=== PATIENT | male | born 1940 | race Caucasian/White ===

== ENCOUNTER 2017-04-16 10:31 | Inpatient (IN) | payer OTHER, BC ==
[~2017-04-16] VITALS: Ht 182.9 cm; Wt 119.3 kg
[2017-04-16 11:08] LABS: BASOPHIL % 0.3 % (0-2); PLATELET COUNT 166 x10^3mcL (130-400)
[2017-04-16 11:09] LABS: RED CELL DISTRIBUTION WIDTH 15.3 % (11.5-14.5)
[2017-04-16 11:23] LABS: ALKALINE PHOSPHATASE 43 U/L (46-116); ALT/SGPT 27 U/L (16-63); AST/SGOT 19 U/L (15-37); BILIRUBIN TOTAL 0.47 mg/dL (0.20-1.00); CALCIUM 8.6 mg/dL (8.5-10.1); CARBON DIOXIDE 28.5 mmol/L (21-32); CHLORIDE SERUM 107 mmol/L (98-107); CREATININE SERUM 2.4 mg/dL (0.7-1.3); GLUCOSE SERUM 424 mg/dL (74-106); SODIUM SERUM 141 mmol/L (136-145); TOTAL PROTEIN, SERUM 6.4 g/dL (6.4-8.2)
[2017-04-16 11:25] LABS: ALBUMIN 2.6 g/dL (3.4-5.0); POTASSIUM SERUM 6.3 mmol/L (3.5-5.1)
[2017-04-16 13:00] LABS: MAGNESIUM 2.1 mg/dL (1.8-2.4); PHOSPHOROUS 1.6 mg/dL (2.5-4.9)
[2017-04-16 13:01] LABS: CHOLESTEROL/HDL RATIO 7.6
[2017-04-16 13:07] LABS: FREE T4 0.9 ng/dL (0.76-1.46); FREE THYROXINE INDEX 2.1 ug/dL (1.4-4.5)
[2017-04-16] MEDS ORDERED: LYRICA150 M1 PO (13:12)
[2017-04-16] MEDS ORDERED: FUROSEMIDE20 MG PO (13:13)
[2017-04-16] MEDS ORDERED: CLOPIDOGREL75 M1 PO (13:13)
[2017-04-16] MEDS ORDERED: JANUVIA100 M1 PO (13:13)
[2017-04-16] MEDS ORDERED: FENOFIBRATE160 M1 PO (13:13)
[2017-04-16] MEDS ORDERED: MASON NATURAL1000 IU PO (13:14)
[2017-04-16] MEDS ORDERED: KLOR-CON M2020 MEQ PO (13:14)
[2017-04-16] MEDS ORDERED: ALLOPURINOL100 MG PO (13:15)
[2017-04-16] MEDS ORDERED: GLYBURIDE5 MG PO (13:15)
[2017-04-16] MEDS ORDERED: NATEGLINIDE120 M1 PO (13:15)
[2017-04-16] MEDS ORDERED: DIOVAN160 MG PO (13:16)
[2017-04-16] MEDS ORDERED: PRA40 PO (13:16)
[2017-04-16 13:21] LABS: T3 TOTAL 0.88 ng/mL
[2017-04-16 14:14] VITALS: BP 129/59
[2017-04-16 16:13] LABS: CALCIUM 9.2 mg/dL (8.5-10.1); CARBON DIOXIDE 27.4 mmol/L (21-32); CHLORIDE SERUM 109 mmol/L (98-107); CREATININE SERUM 2.5 mg/dL (0.7-1.3); SODIUM SERUM 145 mmol/L (136-145)
[2017-04-16 16:15] LABS: GLUCOSE SERUM 476 mg/dL (74-106); POTASSIUM SERUM 5.8 mmol/L (3.5-5.1)
[2017-04-16 18:06] VITALS: BP 127/70
[2017-04-16 21:40] VITALS: BP 117/54
[2017-04-17 02:11] LABS: CALCIUM 8.5 mg/dL (8.5-10.1); CARBON DIOXIDE 25.1 mmol/L (21-32); CHLORIDE SERUM 112 mmol/L (98-107); CREATININE SERUM 2.4 mg/dL (0.7-1.3); GLUCOSE SERUM 285 mg/dL (74-106); POTASSIUM SERUM 4.1 mmol/L (3.5-5.1); SODIUM SERUM 145 mmol/L (136-145)
[2017-04-17 04:01] LABS: TOTAL IRON BINDING CAPACITY 341 ug/dL (250-450)
[2017-04-17 04:07] LABS: IRON 278 ug/dL (65-170)
[2017-04-17 05:51] LABS: BASOPHIL % 0.2 % (0-2); PLATELET COUNT 132 x10^3mcL (130-400)
[2017-04-17 06:27] LABS: CALCIUM 8.8 mg/dL (8.5-10.1); CARBON DIOXIDE 25.7 mmol/L (21-32); CHLORIDE SERUM 113 mmol/L (98-107); CREATININE SERUM 2.3 mg/dL (0.7-1.3); GLUCOSE SERUM 245 mg/dL (74-106); MAGNESIUM 2.1 mg/dL (1.8-2.4); PHOSPHOROUS 2.4 mg/dL (2.5-4.9); SODIUM SERUM 147 mmol/L (136-145)
[2017-04-17 06:29] LABS: RED CELL DISTRIBUTION WIDTH 15.1 % (11.5-14.5)
[2017-04-17 06:52] VITALS: BP 115/61
[2017-04-17 08:21] LABS: RED BLOOD CELLS 2.79 M/mm3 (4.52-5.90)
[2017-04-17 10:31] VITALS: BP 126/54
[2017-04-17 13:44] VITALS: BP 116/54
[2017-04-17 21:47] VITALS: BP 128/62
[2017-04-18 06:30] LABS: BASOPHIL % 0.6 % (0-2); PLATELET COUNT 134 x10^3mcL (130-400)
[2017-04-18 06:40] VITALS: BP 118/56
[2017-04-18 06:43] LABS: RED CELL DISTRIBUTION WIDTH 15.5 % (11.5-14.5)
[2017-04-18 07:02] LABS: CALCIUM 8.5 mg/dL (8.5-10.1); CARBON DIOXIDE 26.2 mmol/L (21-32); CHLORIDE SERUM 117 mmol/L (98-107); CREATININE SERUM 2.1 mg/dL (0.7-1.3); GLUCOSE SERUM 72 mg/dL (74-106); POTASSIUM SERUM 3.7 mmol/L (3.5-5.1); SODIUM SERUM 150 mmol/L (136-145)
[2017-04-18 10:20] VITALS: BP 130/62
[2017-04-18 14:18] VITALS: BP 136/59
[2017-04-18 17:47] VITALS: BP 136/62
[2017-04-18 21:18] VITALS: BP 134/54
[2017-04-19 06:15] VITALS: BP 122/45
[2017-04-19 06:55] LABS: BASOPHIL % 0.4 % (0-2); CALCIUM 8.5 mg/dL (8.5-10.1); CARBON DIOXIDE 26.4 mmol/L (21-32); CHLORIDE SERUM 116 mmol/L (98-107); CREATININE SERUM 1.9 mg/dL (0.7-1.3); GLUCOSE SERUM 150 mg/dL (74-106); POTASSIUM SERUM 3.8 mmol/L (3.5-5.1); SODIUM SERUM 150 mmol/L (136-145)
[2017-04-19 07:07] LABS: PLATELET COUNT 128 x10^3mcL (130-400); RED CELL DISTRIBUTION WIDTH 15.4 % (11.5-14.5)
[2017-04-19 11:22] VITALS: Ht 182.9 cm; Wt 119.3 kg
[2017-04-19] MEDS ORDERED: NITROGLYCERIN0.4 MG SL (13:11)
[2017-04-19] MEDS ORDERED: COR3 PO (13:11)
[2017-04-19 13:49] VITALS: BP 122/45
[2017-04-19 14:26] VITALS: BP 112/43
== END 2017-04-19 16:31 | disposition home or self-care (01) | DRG 377 ==
LOC: ED 10:31 → DU 12:45
PROVIDERS: Emergency Medicine; Internal Medicine Cardiovascular Disease; Internal Medicine Gastroenterology; ADMIT Family Medicine
PROC: 0W3P8ZZ Control Bleeding in Gastrointestinal Tract, Via Natural or Artificial Opening Endoscopic (ICD-10-PCS; principal; 2017-04-18 08:00)
PROC: 0W3P8ZZ Control Bleeding in Gastrointestinal Tract, Via Natural or Artificial Opening Endoscopic (ICD-10-PCS; 2017-04-19)
PROC: 0DBF8ZZ Excision of Right Large Intestine, Via Natural or Artificial Opening Endoscopic (ICD-10-PCS; 2017-04-19 08:00)
PROC: 0DBN8ZZ Excision of Sigmoid Colon, Via Natural or Artificial Opening Endoscopic (ICD-10-PCS; 2017-04-19 08:00)
DX: K31.811 Angiodysplasia of stomach and duodenum with bleeding (principal); E43 Unspecified severe protein-calorie malnutrition; N17.0 Acute kidney failure with tubular necrosis; I42.9 Cardiomyopathy, unspecified; E11.65 Type 2 diabetes mellitus with hyperglycemia; K55.21 Angiodysplasia of colon with hemorrhage; K63.5 Polyp of colon; E87.5 Hyperkalemia; I12.9 Hypertensive chronic kidney disease with stage 1 through stage 4 chronic kidney disease, or unspecified chronic kidney disease; M10.9 Gout, unspecified; E83.39 Other disorders of phosphorus metabolism; J32.0 Chronic maxillary sinusitis; D50.9 Iron deficiency anemia, unspecified; N18.3 Chronic kidney disease, stage 3 (moderate); I25.2 Old myocardial infarction; Z87.891 Personal history of nicotine dependence; Z79.84 Long term (current) use of oral hypoglycemic drugs; Z95.5 Presence of coronary angioplasty implant and graft; I25.10 Atherosclerotic heart disease of native coronary artery without angina pectoris; M48.061 Spinal stenosis, lumbar region without neurogenic claudication
CPT/HCPCS: 43235; 45378; 82962; 83880; 84439; C9113; J0696; J1200; J1610; J1644; J1815; J1940; J2250; J2310; J2405; J2765; J3010; J3490; J7030; J7042; J7613; J7644; J8597; Q0092

== ENCOUNTER 2017-04-26 04:41 | Inpatient (IN) | payer OTHER, BC ==
[~2017-04-26] VITALS: Ht 182.9 cm; Wt 114.9 kg
[~2017-04-26 04:41] MED LIST: ALLOPURINOL100 MG PO; CLOPIDOGREL75 M1 PO; COR3 PO; DIOVAN160 MG PO; FENOFIBRATE160 M1 PO; FUROSEMIDE20 MG PO; GLYBURIDE5 MG PO; JANUVIA100 M1 PO; KLOR-CON M2020 MEQ PO; LYRICA150 M1 PO; MASON NATURAL1000 IU PO; NITROGLYCERIN0.4 MG SL; PRA40 PO
--- NOTE | 2017-04-26 05:00 | NUR ---
PATIENT WAS BROUGHT IN BY EMS WITH COMPLAINT OF SOB AND LOW BLOOD SUGAR. PATIENT IS ALERT AND ORIENTED.02 SAT 96% ON ROOM AIR AND 100% WITH 2L LITERS OXYGEN VIA N/C. PATIENT REPORTS H/O CHF BUT STOP TAKING WATER PILL FOR A FEW DAYS AGO FOR UPCOMIMG PROCEDURE. PATIENT IS TALKING FULL SENTENCE. NO SOB NOTED. BLOOD SUGAR WAS LOW IN THE FIELD, PATIENT WAS GIVEN ORAL GLUCOSE. FINGERSTICK BLOOD SUGAR IS 48 MG/DL. REPEAT WAS 53 MG/DL. MD AWARE AND THE PATIENT WAS GIVEN IV DEXTROSE.
[2017-04-26 05:04] LABS: BASOPHIL % 0.6 % (0-2); PLATELET COUNT 167 x10^3mcL (130-400)
[2017-04-26 05:13] LABS: RED CELL DISTRIBUTION WIDTH 16.4 % (11.5-14.5)
[2017-04-26 05:34] LABS: ALBUMIN 2.8 g/dL (3.4-5.0); ALKALINE PHOSPHATASE 55 U/L (46-116); ALT/SGPT 35 U/L (16-63); AST/SGOT 27 U/L (15-37); BILIRUBIN TOTAL 0.4 mg/dL (0.20-1.00); CARBON DIOXIDE 24.4 mmol/L (21-32); CHLORIDE SERUM 108 mmol/L (98-107); SODIUM SERUM 140 mmol/L (136-145); TOTAL PROTEIN, SERUM 6.6 g/dL (6.4-8.2)
[2017-04-26 05:36] LABS: GLUCOSE SERUM 51 mg/dL (74-106)
--- NOTE | 2017-04-26 06:06 | NUR ---
PATIENT AMBULATED TO THE BATHROOM AND BACK, COMPLAINT HE GOT A LITTLE SHORT OF BREATH WITH WALKING. pATIENT REFUSED TO USE THE COMMODE. BLOOD SUGAR IS 137 MG/DL AT THIS TIME. PATIENT IS SOCIALIZING WITH FAMILY, NO DISTRESS.
--- NOTE | 2017-04-26 06:36 | NUR ---
REPORT WAS GIVEN TO [facility]. MRSA SWAB WAS DONE, MED REC WAS DONE.PATIENT TRANSPORTED TO ROOM 207B.
--- NOTE | 2017-04-26 06:57 | NUR ---
PATIENT TRANSPORTED TO ROOM 207B.
--- NOTE | 2017-04-26 07:00 | NUR ---
RECEIVED PT FOR ADMISSION. PT ACCOMPANIED BY ER NURSE AND SPOUSE VIA GUERNEY FROM ED. ORIENTED PT TO ROOM AND CALL LIGHT. NO SIGNS OF RESP DISTRESS OBSERVED, PT DENIES ANY PAIN. BED IN LOWEST SETTING, SIDE RAILS UP X2, CALL LIGHT WITHIN REACH. WILL ENDORSE CARE TO AM NURSE.
--- NOTE | 2017-04-26 07:30 | NUR ---
RECD REPORT FROM OUTGOING NURSE. PT ARRIVED TO THE UNIT AROUND 0700. OX4. C/C SOB. O2 2L /NC IN USE; DENIES SOB OR COUGH BUT WHEEZES NOTED ON AUSCULTATION PRASHANTH. DENIES CP OR OTHER DISCOMFORT; ON TELE 26. PT STATES HE WAS HOSPITALIZED 2 WKS AGO FOR BLEEDING ULCER AND STOOLS WERE BLACK; HIS STOOLS HAS BEEN YELLOW SINCE DISCHARGE; PT ORIENTED TO UNIT SAFETY AND FALL PRECAUTION REINFORCED; NEEDS ATTENDED; NSG ASSESSMENT DONE AND DOCUMENTED; WILL CONTINUE TO MONITOR STATUS.
[2017-04-26 07:46] LABS: T3 TOTAL 0.72 ng/mL
[2017-04-26 07:50] VITALS: BP 131/58
[2017-04-26 09:16] LABS: MAGNESIUM 2.5 mg/dL (1.8-2.4); PHOSPHOROUS 3.6 mg/dL (2.5-4.9)
[2017-04-26 09:17] LABS: CHOLESTEROL/HDL RATIO 4.2
[2017-04-26 09:19] LABS: FREE THYROXINE INDEX 2.3 ug/dL (1.4-4.5); T4(THYROXINE) 6.3 ug/dL (4.7-13.3)
--- NOTE | 2017-04-26 09:30 | NUR ---
DR. MAGDALENO CALLED FOR DIET ORDER
[2017-04-26 09:52] VITALS: BP 127/54
--- NOTE | 2017-04-26 10:03 | NUR ---
PT REFUSED FLU VACCINE THIS TIME AND STATES WILL CHECK WITH HIS DOCTOR FIRST. PT ASSISTED TO GET OUT OF BED TO CHAIR. URINE HAS BEEN COLLECTED AND SENT TO LAB FOR UA AND UDS.
--- NOTE | 2017-04-26 11:00 | NUR ---
PT AND INSTRUCTED STRICT I&O, AND FREE WATER OF 500 ML. VERBALIZED UNDERSTANDING.FEATHER RENOVATOR MADE AWARE TOO.
--- NOTE | 2017-04-26 11:45 | NUR ---
1122- PT REPORTS FEELING DIZZY AND WITH HAZY VISION; ACCUCHECK DONE AND SHOWS 44 ON THE RH FINGER; RECHECKED ON THE LH FINGER IS 58. DR. MAGDALENO AND [place] AWARE; 1125-D5O 1 AMP IVP ADMINISTERED BY ELASTIC TAPE INSERTER. WITHIN 5 MIN PT REPORTS FEELING RELIEF, VISION IS CLEAR. GIVEN ORANGE JUICE ORDERED BY DR. MAGDALENO. WILL RECHECK ACCUCHECK AND MONITOR STATUS.
[2017-04-26 13:32] LABS: microscopic required? YES; urine erythrocyte TRACE (NEGATIVE)
--- NOTE | 2017-04-26 13:47 | NUR ---
LASIX GIVEN AT 1144; BP 125/61 HR 65.
[2017-04-26 13:49] LABS: AMPHETAMINE QUAL UR NONE DETECTED (NEG <=1000)
[2017-04-26 14:00] VITALS: BP 137/53
[2017-04-26 14:45] VITALS: BP 127/54
--- NOTE | 2017-04-26 17:21 | NUR ---
NO NEW ACUTE CHANGES. PT HAS BEEN SITTING IN THE CHAIR MOST OF THE TIME. NO SOB. O2 2L/NC REMAIN IN USE. KPAD IN PLACE, SCD TO BLE IN USE. WILL CONTINUE TO MONITOR STATUS.
[2017-04-26 17:41] VITALS: BP 119/72
--- NOTE | 2017-04-26 19:30 | NUR ---
PT IS SITTING UP IN CHAIR WITH FAMILY IN THE ROOM. ALERT AND ORIENTED X4. TELE #26 SHOWING SINUS RHYTHM WITH 1ST DEGREE PVC. DENIES CHEST PAIN AT THIS TIME. DENIES PAIN AT THIS TIME. PULSES PALPABLE IN BUE, PULSES DIMINISHED IN BLE DUE TO EDEMA. PT'S STATES "FOOT LOOKS BIGGER THAN YESTERDAY" R/T SWELLING. LUNG SOUNDS CTA. NO SOB OBSERVED. BOWEL SOUNDS ACTIVE X4 QUADRANTS. AMBULATORY. IV IS PATENT AND INTACT. PT IS ON STRICT I&OS. BED IS IN LOWEST POSITION, SIDE RAILS ARE UP X2, CALL LIGHT IS WITHIN REACH. WILL CONTINUE TO MONITOR.
[2017-04-26 20:34] VITALS: BP 123/52
--- NOTE | 2017-04-26 23:50 | NUR ---
PT C/O NEUROPATHY FOOT PAIN. STATED THAT HE USES LYRICA AT HOME TO HELP CONTROL PAIN. SPOKE TO DR. STERN REGARDING A NEW ORDER FOR LYRICA TO ADMINISTER TONIGHT TO HELP WITH PT PAIN. AWAITING NEW ORDER.
--- NOTE | 2017-04-27 02:03 | NUR ---
PT AWAKE IN BED STATES HE HAS TROUBLE SLEEPING AWAY FROM HOME. APPLIED PT'S HOME NEUROPATHY BOOTS ONTO PT HE REQUESTED. STATES HE WANTS HIS BLOOD SUGAR TAKEN SINCE HE EXPERIENCES VISUAL CHANGES WHEN HIS SUGAR IS LOW AND REPORTS SEEING DOTS. WILL TAKE BLOOD SUGAR REQUESTED.
--- NOTE | 2017-04-27 02:04 | NUR ---
PT BLOOD GLUCOSE IS 72. GAVE PT APPLE JUICE.
--- NOTE | 2017-04-27 03:11 | NUR ---
PT SITTING AT SIDE OF BED. STATES HE HAS DIFFICULTY SLEEPING DUE TO NEUROPATHY PAIN AND KEEPS HAVING TO USE THE BATHROOM DUE TO LASIX ADMINISTRATION AT 2049. DENIES CHEST PAIN AT THIS TIME. NO SOB OBSERVED. BREATHING IS EVEN AND UNLABORED. CALL LIGHT IS WITHIN REACH, BED IS IN LOWEST POSITION, SIDE RAILS ARE UP X2. WILL CONTINUE TO MONITOR.
--- NOTE | 2017-04-27 03:31 | NUR ---
PT REPORTED SEEING MULTIPLE SPOTS IN VISION. CHECKED BLOOD GLUCOSE, RESULTS WERE: 56 AND 53. INITIATED PROTOCOL. ADMINISTERED 50% DEXTROSE INJECTION AND GAVE PT MILK. WILL RECHECK BLOOD SUGAR AND NOTIFY .
--- NOTE | 2017-04-27 03:52 | NUR ---
RECHECKED PT BEDSIDE GLUCOSE, RESULT WAS 127. WILL NOTIFY MD AND CONTINUE MONITORING.
--- NOTE | 2017-04-27 03:58 | NUR ---
DR. STERN MADE AWARE OF PT GLUCOSE LEVEL CHANGES AND CURRENT STATUS.
--- NOTE | 2017-04-27 04:05 | NUR ---
TELE MONITOR CALLED, REPORTED PT SHOWING SECOND DEGREE TYPE 1 [place]. WILL NOTIFY
--- NOTE | 2017-04-27 04:17 | NUR ---
DR. STERN MADE AWARE OF PT TELE RHYTHM. WENT IN TO CHECK ON PT, VITALS ARE: 122/55 (67), 67 HR, 94% O2 ROOM AIR, 16 RR. PT ALERT AND ORIENTED. WILL CONTINUE TO MONITOR. RT IS AT BEDSIDE FOR BREATHING TREATMENT.
[2017-04-27 05:11] VITALS: BP 129/55
--- NOTE | 2017-04-27 05:26 | NUR ---
PT SLEPT IN SHORT INTERVALS THROUGHOUT THE NIGHT. A/0 X4. NO SOB OBSERVED. BREATHING IS EVEN AND UNLABORED. DENIES CHEST PAIN. DENIES PAIN AT THIS TIME. BLOOD GLUCOSE WAS 92. MARK CRACKERS GIVEN TO SUSTAIN BLOOD GLUCOSE LEVEL. REPORTS NEUROPATHY FOOT PAIN DECREASED WITH APPLICATION OF NEUROPATHY BOOTS FROM HOME. ALL NEEDS MET AND ATTENDED TO. CALL LIGHT IS WITHIN REACH, BED IS IN LOWEST POSITION, SIDE RAILS ARE UP X2. WILL ENDORSE CARE TO ONCOMING SHIFT NURSE.
[2017-04-27 06:25] LABS: BASOPHIL % 0.5 % (0-2); PLATELET COUNT 140 x10^3mcL (130-400)
[2017-04-27 06:32] LABS: CALCIUM 8.4 mg/dL (8.5-10.1); CARBON DIOXIDE 26.7 mmol/L (21-32); CHLORIDE SERUM 110 mmol/L (98-107); CREATININE SERUM 1.9 mg/dL (0.7-1.3); GLUCOSE SERUM 80 mg/dL (74-106); MAGNESIUM 2.2 mg/dL (1.8-2.4); PHOSPHOROUS 3.5 mg/dL (2.5-4.9); POTASSIUM SERUM 4.1 mmol/L (3.5-5.1); SODIUM SERUM 142 mmol/L (136-145)
[2017-04-27 06:41] LABS: RED CELL DISTRIBUTION WIDTH 16.1 % (11.5-14.5)
[2017-04-27 06:49] LABS: TOTAL IRON BINDING CAPACITY 313 ug/dL (250-450)
[2017-04-27 06:52] LABS: IRON 25 ug/dL (65-170)
--- NOTE | 2017-04-27 07:50 | NUR ---
PT LAYING IN BED. A/OX4. REPORT OF PAIN 4/10 IN BLE. DECLINED TO PAIN MEDICATION. WEARING NEUROPATHY BOOTS. NO SIGN OF ACUTE DISTRESS. 2ND DEGREE HEART BLOCK ON TELE TYPE 1 WENCHKE[place]. PULSES +2 BUE/BLE. +1 PITTING EDEMA BLE. CAP REFILLS <3 SECONDS BUE/BLE. NO REPORT OF SOB. ABDOMEN SOFT, ROUND, NON-DISTENDED. COMPLAINT OF SEEING SPOTS AND FEELING DIZZY. BLOOD SUGAR 85, PT STATES "I FEEL LIKE MY BLOOD SUGAR IS LOW." GIVEN 118ML OF ORANGE JUICE. SYMPTOMS WENT AWAY. DR. MAGDALENO AWARE. BED IN LOW POSITION. CALL LIGHT WITHIN REACH. WILL CONTINUE TO MONITOR.
[2017-04-27 09:19] VITALS: BP 146/53
--- NOTE | 2017-04-27 13:52 | NUR ---
PT STATES FEELING "HAZY'. IV MEDICATION FLOWING. NO ITCHING, NO SOB, NO DIZZINESS, NO CHEST PAIN. NO SIGN OF ACUTE DISTRESS. WILL CONTINUE TO MONITOR.
[2017-04-27 14:10] VITALS: BP 131/62
[2017-04-27 17:06] VITALS: BP 137/59
--- NOTE | 2017-04-27 18:18 | NUR ---
PT LAYING IN BED. A/OX4. NO REPORT OF PAIN. NO SIGN OF ACUTE DISTRESS. IV FLUIDS FLOWING. FAMILY AT BEDSIDE. NO COMPLAINT OF SOB. NO COMPLAINT OF CHEST PAIN. BED IN LOW POSITION. CALL LIGHT WITHIN REACH. WILL ENDORSE TO ONCOMING SHIFT.
--- NOTE | 2017-04-27 19:30 | NUR ---
PATIENT RESTING IN BED WITH FAMILY MEMBERS IN THE ROOM. IS AT BEDSIDE. A/O X4. TELE #26 IS SHOWING NSR. DENIES CHEST PAIN AT THIS DIONNE. DENIES PAIN AT THIS TIME. STATES HE HAS BEEN EXPERIENCING A GOUT FLARE-UP SINCE THIS AM. BELIEVES IRON MAY BE THE CAUSE. LUNG SOUNDS DIMINISHED TO AUSCULTATION BILAT. NO SOB OBSERVED. BREATHING IS EVEN AND UNLABORED. BOWEL SOUNDS ACTIVE X4 QUADRANTS. PT MENTIONED HAVING CONSTIPATION SINCE IRON ADMINISTRATION. BILAT PITTING EDEMA +1 OBSERVED ON FEET. STATES SWELLING IN HIS FEET HAVE GONE DOWN SINCE YESTERDAY. AMBULATORY. CALL LIGHT IS WITHIN REACH, SIDE RAILS UP X2, BED IS IN LOWEST POSITION. WILL CONTINUE TO MONITOR.
[2017-04-27 20:45] VITALS: BP 126/55
--- NOTE | 2017-04-27 20:48 | NUR ---
SPOKE TO DR. STERN ABOUT PT C/O 09/18 GOUT PAIN. WAITING FOR NEW ORDER.
--- NOTE | 2017-04-27 21:20 | NUR ---
PATIENT GLUCOSE WAS 180. SPOKE TO DR. STERN ABOUT WHETHER TO GIVE FULL INSULIN COVERAGE OR NOT DUE TO PT SENSITIVITY TO INSULIN. DR. STERN SAYS TO GIVE HALF COVERAGE DUE TO PT SENSIVITY TO INSULIN. HALF INSULIN COVERAGE GIVEN.
--- NOTE | 2017-04-27 21:41 | NUR ---
PT STATES HE BELIEVES THE FERROUS SULFATE AND IRON IS CAUSING HIS GOUT ATTACK. REFUSED FERROUS SULFATE DURING MEDICATION ADMINISTRATION. PT WISHES TO SPEAK TO DR. STERN ABOUT RECEIVING MEDICATION FOR GOUT PAIN AND ABOUT HIS GOUT. ASKED PATIENT TO DEMONSTRATE IS USE, PT WAS ABLE TO REACH 1,[address] STERN TO VISIT PATIENT.
--- NOTE | 2017-04-27 22:54 | NUR ---
PT REPORTS THAT DR. STERN CAME IN TO TALK TO HIM. PATIENT BLOOD GLUCOSE CHECKED PER PT REQUEST, BLOOD GLUCOSE WAS 162. PT DENIES PAIN AT THIS TIME. WILL CONTINUE TO MONITOR.
--- NOTE | 2017-04-27 23:19 | NUR ---
PT C/O 07/19 GOUT PAIN, MEDICATED PER EMAR WITH NORCO. WILL REASSESS.
--- NOTE | 2017-04-28 01:36 | NUR ---
PT IS SLEEPING AT THIS TIME. NO SIGNS OF PAIN OBSERVED. NO SOB NOTED. BREATHING IS EVEN AND UNLABORED. CALL LIGHT IS WITHIN REACH, SIDE RAILS UP X2, BED IS IN LOWEST POSITION. WILL CONTINUE TO MONITOR.
--- NOTE | 2017-04-28 02:22 | NUR ---
PT ASLEEP BUT EASILY AROUSABLE, RANDOM BLOOD SUGAR CHECK-133 MG/DL.
--- NOTE | 2017-04-28 03:06 | NUR ---
PT IS SLEEPING AT THIS TIME. NO SIGNS OF PAIN OBSERVED. NO SOB NOTED. BREATHING IS EVEN AND UNLABORED. WILL CONTINUE TO MONITOR.
[2017-04-28 06:05] VITALS: BP 120/57
--- NOTE | 2017-04-28 06:41 | NUR ---
PT SLEPT WELL THROUGHOUT THE NIGHT. PT AWAKE AND SITTING AT SIDE OF BED. A/O X4. DENIES PAIN AT THIS TIME. DENIES CHEST PAIN AT THIS TIME. NO SOB OBSERVED. BREATHING IS EVEN AND UNLABORED. ALL NEEDS MET AND ATTENDED TO. REPORTS HIS VISION IS FINE. NO SIGNIFICANT CHANGES. CALL LIGHT IS WITHIN REACH, BED IS IN LOWEST POSITION, SIDE RAILS UP X2. WILL ENDORSE CARE TO ONCOMING SHIFT NURSE.
[2017-04-28 07:02] LABS: BASOPHIL % 0.5 % (0-2); CALCIUM 8.6 mg/dL (8.5-10.1); CARBON DIOXIDE 25.1 mmol/L (21-32); CHLORIDE SERUM 107 mmol/L (98-107); CREATININE SERUM 1.9 mg/dL (0.7-1.3); GLUCOSE SERUM 109 mg/dL (74-106); PLATELET COUNT 161 x10^3mcL (130-400); POTASSIUM SERUM 4.1 mmol/L (3.5-5.1); SODIUM SERUM 141 mmol/L (136-145); URIC ACID 9.3 mg/dL (3.5-7.2)
[2017-04-28 07:15] LABS: RED CELL DISTRIBUTION WIDTH 16.6 % (11.5-14.5)
--- NOTE | 2017-04-28 08:00 | NUR ---
PATIENT RECEIVED ALERT AND ORIENTED TIMES FOUR. PATIENT WITH VERY DIMINISHED BREATHS SOUNDS AND WITH HISTORY OF CHRONIC RENAL FAILURE WELL CHF AND HAS HAD A CORONARY STENT. PATEINT WITH VITALS AT THIS TIEM AT 97.5, 58, 18, 120/67, 95% LAST BLOOD SUGAR WAS AT 102. PATIENT WITH NOTED LABS OF H AND H OF 7.7/ AND HAS REFUSED THE IRON IVP. AAGEED TO TAKE THE ORAL IRON INDICATED. PATIENT HAS BUN AT 33.0 AND THE CREATININE AT 1.9. PATIENT HAS BEEN WITH LOW BLOOD SUGAR THIS AM AND HE HAS BEEN BRITTLE PER THE JEWEL BEARING BROACHER AND ADMITS HE IS SENSITIVE TO MEDICATION AND HIS BLOOD SUGAR CAN BE UNPREDICTABLE. PATIENT HAS SOME MILD PULMONARY EDEMA AND HAS TROPONIN THAT IS NEGATIVE. PATIENT IS AMBULATORY AND WITH IS AT BEDSIDE AND ENCOURAGE TO DEEP BREATH AND OFTEN. PATIENT IS ON A FLUID RESTRICTION AND ON A CCHO DIET. COMPLAINS ON AND OFF OF GOUT PAIN AND STATES THIS IS THE REASON HE PREFERS NOT TO TAKE IRON. PATIENT IS ALLERGIC TO ASPIRIN AND WITH NEURO BOOTS IN PLACE AND STATES HE HAS RELIEF FROM THE BOOTS FOR HIS NEUROPATHY AND SOME FOR THE GOUT. NO REQUEST FOR PAIN MEDICATION AT THIS TIME. PATIENT IS HOPING TO GO HOME TODAY AND AWAITING ROUNDS FOR PATIENT TO DISCUSS FURTHER HIS CONCERNS AND DISCUSS PLAN OF CARE.
--- NOTE | 2017-04-28 08:50 | NUR ---
SEEN BY DR AHN AND STAFF AND PLAN OF CARE DISCUSSED. PATIENT FOR DISCHARG HOME TODAY AND PATIENT IS ANXIOUS TO LEAVE. AWAITING ORDERS.
[2017-04-28 09:30] VITALS: BP 109/58
--- NOTE | 2017-04-28 10:30 | NUR ---
PER PATIENT REQUEST GLUCOSE CHECKED AND WNL AT THIS TIME. CONTINUE TO MONITOR.
[2017-04-28] MEDS ORDERED: LASIX20 MG PO (12:23)
[2017-04-28 13:58] VITALS: BP 116/57
--- NOTE | 2017-04-28 14:00 | NUR ---
BP AT 79/38 AND 02 SATURATION AT 88. RECHECKED AND CONTINUED LOW WHILE LYING DOWN. REPORTED TO THE CHART SNATCHER WHO WILL COME TO SEE. RESPIRATORY AND CHART SNATCHER SAW THE PATIENT AND NOW AT NORMAL RANGE WITH NO SIGNS OF DISTRESS. WILL DISCHARGE HOME PLANNED.
[2017-04-28 15:16] VITALS: BP 116/57
[2017-04-28] MEDS ORDERED: NATEGLINIDE120 M1 PO (15:16)
--- NOTE | 2017-04-28 16:01 | NUR ---
PATIENT GIVEN DISCHARGE PAPERWORK AND TO FOLLOW UP WITH DR ARSHAD AND INTERNS AND TO CALL FOR DATE AND TIME. HE IS ANXIOIUS TO GO HOME. CLEARED BY THE SPECIMEN TECHNICIAN AND RESPIRATORY AND 02 STAT IS WNL AND BP WAS ALSO WNL.
--- NOTE | 2017-04-28 16:05 | NUR ---
PATIENT BLOOD SUGAR AT 1130 AT 159 ADN REFUSED INSULIN AT THIS TIME. WILL CONTINUE TO MONITOR.
== END 2017-04-28 16:29 | disposition home or self-care (01) | DRG 291 ==
LOC: ED 04:41 → DU 06:12
PROVIDERS: Emergency Medicine; Family Medicine; Internal Medicine Nephrology; ADMIT Family Medicine
DX: I13.0 Hypertensive heart and chronic kidney disease with heart failure and stage 1 through stage 4 chronic kidney disease, or unspecified chronic kidney disease (principal); I50.43 Acute on chronic combined systolic (congestive) and diastolic (congestive) heart failure; J96.00 Acute respiratory failure, unspecified whether with hypoxia or hypercapnia; N17.0 Acute kidney failure with tubular necrosis; E43 Unspecified severe protein-calorie malnutrition; N18.9 Chronic kidney disease, unspecified; E11.22 Type 2 diabetes mellitus with diabetic chronic kidney disease; E11.65 Type 2 diabetes mellitus with hyperglycemia; D63.1 Anemia in chronic kidney disease; M48.061 Spinal stenosis, lumbar region without neurogenic claudication; E78.5 Hyperlipidemia, unspecified; Z68.34 Body mass index [BMI] 34.0-34.9, adult
CPT/HCPCS: 82962; 83880; 84439; J1940; J2916; J3490; J7030; J7060; J7620; Q0092

== ENCOUNTER 2017-08-26 14:46 | Emergency (ER) | payer OTHER, BC ==
[~2017-08-26] VITALS: Ht 182.9 cm; Wt 118.6 kg
[~2017-08-26 14:46] MED LIST changes: +LASIX20 MG PO; +NATEGLINIDE120 M1 PO
[2017-08-26 14:50] VITALS: BP 119/69; Ht 182.9 cm; Wt 118.6 kg
== END 2017-08-26 15:24 | disposition home or self-care (01) ==
LOC: ED 14:46
DX: S50.812A Abrasion of left forearm, initial encounter (principal); I10 Essential (primary) hypertension; E11.9 Type 2 diabetes mellitus without complications; Z88.6 Allergy status to analgesic agent; W01.0XXA Fall on same level from slipping, tripping and stumbling without subsequent striking against object, initial encounter; Y93.89 Activity, other specified; Y99.8 Other external cause status; Y92.89 Other specified places as the place of occurrence of the external cause
CPT/HCPCS: 90715

== ENCOUNTER 2017-10-21 10:48 | Emergency (ER) | payer OTHER, BC ==
[~2017-10-21] VITALS: Ht 182.9 cm; Wt 112.9 kg
[2017-10-21 10:51] VITALS: Ht 182.9 cm; Wt 112.9 kg
[2017-10-21 12:25] VITALS: BP 104/64
== END 2017-10-21 13:08 | disposition home or self-care (01) ==
LOC: ED 10:48
DX: M19.032 Primary osteoarthritis, left wrist (principal); I10 Essential (primary) hypertension; M25.522 Pain in left elbow; M25.521 Pain in right elbow; M25.562 Pain in left knee; M25.561 Pain in right knee; M25.572 Pain in left ankle and joints of left foot; M25.571 Pain in right ankle and joints of right foot; Z95.5 Presence of coronary angioplasty implant and graft; Z88.6 Allergy status to analgesic agent